=== PATIENT | female | born 1990 | race Two or more races ===

== ENCOUNTER 2018-07-03 10:52 | Inpatient (IN) | payer MEDICAID ==
[2018-07-03] VITALS (7 sets, daily range): BP systolic 117–152; BP diastolic 54–89
[~2018-07-03] VITALS: Ht 165.1 cm; Wt 129.3 kg
--- NOTE | 2018-07-03 11:05 | NUR ---
PT TO ER BED 16, ENDORSES 2 WEEKS OF LOWER ABDOMIAL PAIN W/ HEAVY VAGINAL BLEEDING. PT HAD AN ULTRASOUND DONE 05/08 AND WAS DIAGNOSED W/ FIBROIDS. PT GOWNED AND PLACED ON MONITOR. VSS. AWAITING MD MEDINA.
--- NOTE | 2018-07-03 11:21 | NUR ---
ERMD AT BEDSIDE FOR EVAL.
--- NOTE | 2018-07-03 11:25 | NUR ---
DIRECTOR OF CORPORATE SALES AT BEDSIDE FOR BLOOD DRAW.
[2018-07-03 11:30] LABS: BASOPHILS % (AUTO) 0.4 % (0.0-2.0); EOSINOPHILS % (AUTO) 1.7 % (0.0-6.0); HEMATOCRIT 25 % (33-45); HEMOGLOBIN 7.1 g/dL (11.5-14.8); LYMPHOCYTES # (AUTO) 2.2 /CMM (0.8-4.8); LYMPHOCYTES % (AUTO) 26.9 % (20.0-44.0); MEAN CORPUSCULAR HGB CONC 29 g/dl (31.0-36.0); MEAN CORPUSCULAR VOLUME 63 fL (82-100); MONOCYTES # (AUTO) 0.4 /CMM (0.1-1.30); MONOCYTES % (AUTO) 5.1 % (2.0-12.0); NEUTROPHILS # (AUTO) 5.3 /CMM (1.8-8.9); NEUTROPHILS % (AUTO) 65.9 % (43.0-81.0); PLATELET COUNT (AUTO) 364 /CMM (150-450); RED BLOOD CELL COUNT(AUTO) 3.97 MIL/uL (4.0-5.2); WHITE BLOOD COUNT (AUTO) 8.1 K/uL (4.3-11.0)
[2018-07-03 11:56] LABS: CALCIUM, SERUM 8.5 mg/dL (8.5-10.1); POTASSIUM 3.3 mmol/L (3.5-5.1)
[2018-07-03 11:57] LABS: CREATININE 0.7 mg/dL (0.6-1.3)
[2018-07-03 12:02] LABS: BAND % (MANUAL) 1 % (0.0-5.0); EOSINOPHILS % (MANUAL) 2 % (0-4); LYMPHOCYTES % (MANUAL) 26 % (16-48); MONOCYTES % (MANUAL) 5 % (0-11.0); NEUTROPHILS % (MANUAL) 66 (42-76)
[2018-07-03 12:18] LABS: APPEARANCE,URINE Cloudy (CLEAR); BILIRUBIN,URINE SMALL (NEGATIVE); BLOOD, URINE Large Ery/uL (NEGATIVE); COLOR,URINE Yellow (YELLOW); KETONES,URINE Negative (NEGATIVE); LEUKOCYTE ESTERASE ,URINE Small (NEGATIVE); NITRITE, URINE Negative (NEGATIVE); PROTEIN,URINE 100 mg/dl (NEGATIVE); UGLUCOSE Negative (NEGATIVE); UROBILINOGEN,URINE 0.2 EU/dL (0.2)
[2018-07-03 12:25] LABS: BACTERIA,URINE Few /HPF (None Seen); SQUAMOUS EPITHELIAL CELL,UR Few /HPF (None Seen)
--- NOTE | 2018-07-03 12:44 | NUR ---
ADMIT TO 324-1 MED SURG DX ANEMIA, DIZZINESS ACCEPTING [facility]
--- NOTE | 2018-07-03 13:13 | NUR ---
REPORT GIVEN TO ZOILA VALLEJO. PT AWAITING TRANSFER TO FLOOR.
--- NOTE | 2018-07-03 13:47 | NUR ---
RN MS NOTES RECE[place] [facility] [place] TO [place]ED, MADE COMFORTABLE, PT IS AWAKE, ALERT AND ORIENTED X 4, NO COMPLAINT OF PAIN, BREATHING PATTERN NORMAL, STATED THAT SHE HAS VERY LITTLE VAGINAL BLEEDING AT THIS TIME, NO COMPLAINT OF DIZZINESS, ROOM SET UP ORIENTATION PROVIDED, VERBALIZED UNDERSTANDING, AWAITING ADMITTING ORDERS FROM MD.
[2018-07-03] MEDS ORDERED: MAG HYDROX/AL HYDROX/SIMETH 30 ML UDC PO PRN (16:30)
[2018-07-03] MEDS ORDERED: ACETAMINOPHEN 325 MG TABLET PO PRN (16:30)
[2018-07-03] MEDS ORDERED: ZOLPIDEM TARTRATE 5 MG TABLET PO PRN (16:30)
[2018-07-03] MEDS ORDERED: MAGNESIUM HYDROXIDE 30 ML UDC PO PRN (16:30)
[2018-07-03] MEDS ORDERED: Z GUARD REMEDY 2 OZ OINT TP PRN (16:30)
[2018-07-03] MEDS ORDERED: HYDROCODONE/APAP 5/325MG 1 EACH TABLET PO PRN (16:30)
[2018-07-03] MEDS ORDERED: POTASSIUM CHLORIDE 20 MEQ TAB.PRT.SR PO ONE (16:30)
[2018-07-03] MEDS ORDERED: ONDANSETRON HCL/PF 4 MG/2 ML VIAL IVP PRN (16:30)
--- NOTE | 2018-07-03 19:00 | NUR ---
RN MS NOTES PT IN BED, AWAKE, ALERT AND ORIENTED, DENIES PAIN, NOT IN DISTRESS, CALL LIGHT WITHIN REACH, SEEN BY DR. BARBOUR, PLAN OF CARE DISCUSSED WITH PT, VERBALIZED UNDERSTANDING, WITH ONGOING BLOOD TRANSFUSION OF 1 UNIT PRBC, TOLERATING WELL, VITAL SIGNS STABLE AND RECORDED, WILL ENDORSE TO FLOAT REMOVER NURSE FOR CONTINUITY OF CARE.
--- NOTE | 2018-07-03 20:00 | NUR ---
MS RN NOTES RECEIVED PATIENT AWAKE IN BED WITH NO DISTRESS NOTED. CALL LIGHT WITHIN REACH. FAMILY AT BEDSIDE. 1 UNIT PRBC TRANSFUSING. VITALS WNL. PATIENT WITH NO NEW SKIN RASH OR RESPIRATORY DISTRESS NOTED. PERIPHERAL LINE INTACT AND PATENT WITH NO REDNESS OR SWELLING AT INSERTION SITE. NO C/O PAIN OR DISCOMFORT. BED IN LOW LOCK SETTING. ALL BELONGINGS KEPT NEAR BEDSIDE. WILL CONTINUE TO MONITOR.
--- NOTE | 2018-07-03 21:00 | NUR ---
RN NOTES BLOOD TRANSFUSIONS FINISHED, NO REACTION NOTED, V/S STABLE
--- NOTE | 2018-07-04 06:10 | NUR ---
MS RN CLOSING NOTES PATIENT ASLEEP IN BED WITH NO DISTRESS NOTED. CALL LIGHT WITHIN REACH. PERIPHERAL LINE INTACT AND PATENT. VITALS REMAIN WNL. NO C/O PAIN OR DISCOMFORT. BED IN LOW LOCK SETTING. ALL BELONGINGS KEPT NEAR BEDSIDE. WILL ENDORSE TO ONCOMING SHIFT.
--- NOTE | 2018-07-04 07:30 | NUR ---
m/s operating engineer: initial assessment received pt in bed awake, a/ox4; lao speaking only. no c/o vaginal bleeding or any discomfort at this time. instructed to call for assistance. will continue to monitor.
[2018-07-04 07:47] LABS: BASOPHILS % (AUTO) 0.4 % (0.0-2.0); EOSINOPHILS % (AUTO) 1.7 % (0.0-6.0); HEMATOCRIT 26 % (33-45); HEMOGLOBIN 7.8 g/dL (11.5-14.8); LYMPHOCYTES # (AUTO) 2.5 /CMM (0.8-4.8); LYMPHOCYTES % (AUTO) 27.8 % (20.0-44.0); MEAN CORPUSCULAR HGB CONC 30 g/dl (31.0-36.0); MEAN CORPUSCULAR VOLUME 65 fL (82-100); MONOCYTES # (AUTO) 0.5 /CMM (0.1-1.30); MONOCYTES % (AUTO) 5.7 % (2.0-12.0); NEUTROPHILS # (AUTO) 5.7 /CMM (1.8-8.9); NEUTROPHILS % (AUTO) 64.4 % (43.0-81.0); PLATELET COUNT (AUTO) 338 /CMM (150-450); RED BLOOD CELL COUNT(AUTO) 4.05 MIL/uL (4.0-5.2); WHITE BLOOD COUNT (AUTO) 8.8 K/uL (4.3-11.0)
[2018-07-04 07:59] LABS: CALCIUM, SERUM 8.5 mg/dL (8.5-10.1); CREATININE 0.6 mg/dL (0.6-1.3); PHOSPHORUS 3.7 mg/dL (2.5-4.9); POTASSIUM 3.5 mmol/L (3.5-5.1)
[2018-07-04] MEDS ORDERED: FERR325T23 PO (08:24)
--- NOTE | 2018-07-04 08:27 | NUR ---
m/s operations engineer: md visit seen and examined by dr. coulter with order to discharge pt and to f/u with obgyn in 1 week. pt aware and verbalized understanding with thai staff translating.
--- NOTE | 2018-07-04 08:40 | NUR ---
m/s fitness center attendant: d'c instructions discharged instructions given with prescription with belarusian staff translating. pt verbalized understanding. h/l removed with tip intact with no bleeding, no redness, and no swelling noted. pt called her to pick her up.
--- NOTE | 2018-07-04 09:10 | NUR ---
m/s process control board operator: discharged discharged home in stable condition accompanied by via private car with all d'c papers, prescription, and belongings.
== END 2018-07-04 11:11 | disposition home or self-care (01) | DRG 532 ==
LOC: ER 10:59 → MED 12:46
PROVIDERS: ADMIT Student in an Organized Health Care Education/Training Program; ATTEND Student in an Organized Health Care Education/Training Program
PROC: 30233N1 Transfusion of Nonautologous Red Blood Cells into Peripheral Vein, Percutaneous Approach (ICD-10-PCS; principal; 2018-07-03)
DX: D25.9 Leiomyoma of uterus, unspecified (principal); E46 Unspecified protein-calorie malnutrition; E66.01 Morbid (severe) obesity due to excess calories; D62 Acute posthemorrhagic anemia; Z68.42 Body mass index [BMI] 45.0-49.9, adult; N92.0 Excessive and frequent menstruation with regular cycle; E87.6 Hypokalemia; F17.200 Nicotine dependence, unspecified, uncomplicated
CPT/HCPCS: 36415; 80048-TC; 81000-TC; 83735-TC; 84100-TC; 84702-TC; 84703-TC; 85025-TC; 86850-TC; 86921-TC; 87081-TC; G0378; J7050; P9016-BL

== ENCOUNTER 2022-05-07 13:45 | Inpatient (IN) | payer MEDICAID ==
[~2022-05-07] VITALS: Ht 167.6 cm; Wt 131.5 kg
[~2022-05-07 13:45] MED LIST: FERR325T23 PO
--- NOTE | 2022-05-07 14:00 | NUR ---
BIBRELATIVE C/O FACIAL AND BUE "TINGLY" SENSATION X 3 DAYS, DENIES DIZZINESS/ CHEST PAIN HYPERTENSIVE SEMICONDUCTOR LAB TECHNICIAN. AMBULATORY, PLACED ON BED, BREATHING EVEN AND UNLABORED SATURATING AT 98%RA
--- NOTE | 2022-05-07 14:44 | NUR ---
BLOOD DRAWN AND SENT TO LAB
[2022-05-07 15:14] LABS: BASOPHILS % (AUTO) 0.4 % (0.0-2.0); EOSINOPHILS % (AUTO) 2.5 % (0.0-6.0); HEMATOCRIT 41 % (33-45); LYMPHOCYTES # (AUTO) 1.8 K/uL (0.8-4.8); LYMPHOCYTES % (AUTO) 24.8 % (20.0-44.0); MEAN CORPUSCULAR HGB CONC 34 g/dl (31.0-36.0); MEAN CORPUSCULAR VOLUME 84 fL (82-100); MONOCYTES # (AUTO) 0.6 K/uL (0.1-1.30); MONOCYTES % (AUTO) 7.8 % (2.0-12.0); NEUTROPHILS # (AUTO) 4.6 K/uL (1.8-8.9); NEUTROPHILS % (AUTO) 64.5 % (43.0-81.0); RED BLOOD CELL COUNT(AUTO) 4.86 MIL/uL (4.0-5.2); WHITE BLOOD COUNT (AUTO) 7.1 K/uL (4.3-11.0)
[2022-05-07 15:25] LABS: CALCIUM, SERUM 7.1 mg/dL (8.5-10.1); CARBON DIOXIDE 33 mmol/L (21-32); CHLORIDE 102 mmol/L (98-107); GLUCOSE 191 mg/dL (74-106); SODIUM SERUM 141 mmol/L (136-145); UREA NITROGEN, BLOOD 10 mg/dL (7-18)
--- NOTE | 2022-05-07 15:40 | NUR ---
TROPONIN- 241 MD MADE AWARE
[2022-05-07 15:46] LABS: PLATELET COUNT (AUTO) 253 K/uL (150-450)
[2022-05-07 15:50] LABS: POTASSIUM 2.7 mmol/L (3.5-5.1)
--- NOTE | 2022-05-07 16:38 | NUR ---
SWAB FOR COVID19 SENT TO LAB
[2022-05-07] MEDS ORDERED: POTASSIUM CHLORIDE 20 MEQ TAB.PRT.SR PO ONE ×3 (16:48→20:00)
[2022-05-07] MEDS ORDERED: hydrALAZINE HCL IV 20 MG VIAL ONE (16:48)
[2022-05-07] MEDS: POTASSIUM CHLORIDE 20 MEQ TAB.PRT.SR PO ONE (16:54)
[2022-05-07] MEDS ORDERED: TEMAZEPAM 15 MG CAPSULE PO PRN (17:00)
[2022-05-07] MEDS ORDERED: hydrALAZINE HCL IV 20 MG VIAL IV ONE (17:00)
[2022-05-07] MEDS ORDERED: LORAZEPAM 1 MG TABLET PO PRN (17:00)
[2022-05-07] MEDS ORDERED: MAGNESIUM HYDROXIDE 30 ML UDC PO PRN (17:00)
[2022-05-07] MEDS ORDERED: DEXTROSE 50%-WATER 50 ML DISP.SYRIN IV PRN (17:00)
[2022-05-07] MEDS ORDERED: ASPIRIN 81 MG TAB.CHEW PO ONE (17:00)
[2022-05-07] MEDS ORDERED: hydrALAZINE HCL IV 20 MG VIAL IV PRN (17:00)
[2022-05-07] MEDS ORDERED: MAG HYDROX/AL HYDROX/SIMETH 30 ML UDC PO PRN (17:00)
[2022-05-07] MEDS ORDERED: ACETAMINOPHEN 325 MG TABLET PO PRN (17:00)
[2022-05-07] MEDS ORDERED: ONDANSETRON HCL/PF 4 MG/2 ML VIAL IVP PRN (17:00)
[2022-05-07] MEDS ORDERED: HYDROCODONE/APAP 5/325MG TABLET PO PRN (17:00)
[2022-05-07] MEDS ORDERED: Z GUARD REMEDY 4 OZ OINT TP PRN (17:00)
[2022-05-07] MEDS ORDERED: INSULIN REGULAR, HUMAN 100 UNIT/ML 3 ML VIAL SQ PRN (17:00)
[2022-05-07] MEDS ORDERED: BLOOD SUGAR DIAGNOSTIC 1 EACH STRIP IN SCH (17:30)
[2022-05-07 18:08] VITALS: BP 173/96
--- NOTE | 2022-05-07 18:42 | NUR ---
GOT BED ASSIGNMENT > CHANGE OF SHIFT 320-2
--- NOTE | 2022-05-07 19:00 | NUR ---
REPORT GIVEN TO ANGEL VALLEJO ROOM 320-2 FOR HANNAH
[2022-05-07] MEDS ORDERED: MORPHINE SULFATE INJ 4 MG/ML DISP.SYRIN IV PRN (19:30)
[2022-05-07] MEDS ORDERED: ENOXAPARIN SODIUM 40 MG/0.4 ML DISP.SYRIN SQ SCH (19:30)
--- NOTE | 2022-05-07 19:50 | NUR ---
RN NOTE PATIENT ARRIVED TO UNIT STABLE. AFTER ARRIVING PATIENT DECIDED SHE WANTED TO LEAVE. PATIENT LEFT AMA. IV SITE REMOVED, CATH INTACT, PRESSURE BANDAGE IN PLACE. ID BAND REMOVED AND DISPOSED OF IN PROPER HIPAA PROTOCOL. PATIENT WAS ABLE TO AMBULATE BUT WAS FOLLOWED BY THIS RN TO THE FIRST FLOOR WITH HER PARTNER. PATIENT EDUCATION GIVEN REGARDING CURRENT STATE OF HEALTH; EMPHASIS W/ FOLLOWING UP W/ AN TOMASZ WAS ADMINISTERED TO PATIENT AND PARTNER.
[2022-05-08] MEDS ORDERED: PANTOPRAZOLE 40 MG TABLET.DR PO SCH (07:30)
[2022-05-08] MEDS ORDERED: LISINOPRIL (10MG) 10 MG TABLET PO SCH (09:00)
== END 2022-05-07 20:00 | disposition left against medical advice (07) | DRG 190 ==
LOC: ER 13:51 → TELE 18:56
PROVIDERS: ADMIT Nurse Practitioner Acute Care; ATTEND Nurse Practitioner Acute Care
DX: I21.4 Non-ST elevation (NSTEMI) myocardial infarction (principal); E44.0 Moderate protein-calorie malnutrition; E11.65 Type 2 diabetes mellitus with hyperglycemia; E87.6 Hypokalemia; F41.9 Anxiety disorder, unspecified; I16.0 Hypertensive urgency; E66.01 Morbid (severe) obesity due to excess calories; Z68.42 Body mass index [BMI] 45.0-49.9, adult; F17.210 Nicotine dependence, cigarettes, uncomplicated; I10 Essential (primary) hypertension; Z91.199 Patient's noncompliance with other medical treatment and regimen due to unspecified reason; E88.09 Other disorders of plasma-protein metabolism, not elsewhere classified
CPT/HCPCS: 36415; 70450-TC; 71045-TC; 80048-TC; 83880; 84484-TC; 85025-TC; 87081-TC; 93307-TC; C9803; G0378; J0360; J1815